=== PATIENT | female | born 1965 | race African-American/Black ===

== ENCOUNTER 2019-04-03 19:41 | Emergency (ER) | payer OTHER ==
[~2019-04-03] VITALS: Ht 165.1 cm; Wt 87.7 kg
[2019-04-03] MEDS ORDERED: LOSA25TA44 PO (20:05)
[2019-04-03] MEDS ORDERED: HYDR25TA PO (20:05)
[2019-04-03] MEDS ORDERED: [UNRECOGNIZED DRUG - CODE] PO (20:06)
[2019-04-03] MEDS ORDERED: TIOT185 IH (20:07)
[2019-04-03] MEDS ORDERED: ADV250 IH (20:07)
[2019-04-03] MEDS ORDERED: DEXAMETHASONE 4 MG TABLET PO ONE (21:30)
[2019-04-03] MEDS ORDERED: ALBUTEROL SULFATE HFA 90 MCG/PUFF 8 GM INHALER IH ONE (21:30)
[2019-04-03 21:53] VITALS: BP 138/89
== END 2019-04-03 22:42 | disposition home or self-care (01) ==
LOC: EMS 19:42
DX: J45.909 Unspecified asthma, uncomplicated (principal); I10 Essential (primary) hypertension
CPT/HCPCS: 94640; 99283; J8540; J3535